=== PATIENT | male | born 1990 | race Caucasian/White ===

== ENCOUNTER 2017-04-16 15:22 | Emergency (ER) | payer OTHER ==
[~2017-04-16] VITALS: Ht 175.3 cm; Wt 120.0 kg
[~2017-04-16 15:22] MED LIST: ADJUSTABLE COMM1 MIS; HYDR-3583 PO; SENN1TAB PO; TRANSFER BENCH1 MIS; WHEEMIS3; XARE10TA PO
[2017-04-16 15:25] VITALS: BP 138/78; PULSE 82; RESP 18; TEMP 97.3; O2SAT 96
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
== END 2017-04-16 19:15 | disposition home or self-care (01) ==
LOC: NEPD 15:22
DX: M79.661 Pain in right lower leg (principal); Z51.89 Encounter for other specified aftercare; Z79.899 Other long term (current) drug therapy
CPT/HCPCS: 93971; 99284